=== PATIENT | female | born 1960 ===

== ENCOUNTER 2017-05-10 19:31 | Emergency (ER) | payer MEDICARE, MEDICAID ==
--- NOTE | ~2017-05-10 | ER ---
[facility] AGE[facility] 57 Y [address] ROOM: [place] [id number] LOCATION: [facility] ADMIT DATE: 05/10/2017 ER/Outpatient Report DISCHARGE DATE: 05/10/2017 FAMILY PHYSICIAN: France Mitchell MD ATTENDING PHYSICIAN: Shaunna Caraballo Time of Evaluation: 1945 hours. CHIEF COMPLAINT: Left flank pain. HISTORY OF PRESENT ILLNESS: The patient is a 57-year-old female, who presents with history of back pain for the last 4 weeks. However, today, she had 3 emesis. She denied any fever, chills, or urinary symptoms. The patient has had a recent MRI, and it showed some degenerative disk disease and bulging disks and is scheduled later on this week for an epidural steroid injection. The epidural was ordered by her pain specialist. ALLERGIES: SULFA. CURRENT MEDICATIONS: 1. Flexeril. 2. Allopurinol. 3. Abilify. 4. Zoloft. 5. Metformin. 6. Potassium. 7. Lipitor. 8. Hydrochlorothiazide. 9. Aspirin. 10. Wellbutrin. MEDICAL HISTORY: Pvy-juvgeen-lbxgmazik diabetes, excessive weight, COPD, gout, depression, anxiety, hyperlipidemia, enlarged heart, asthma, chronic pain related to her back. SOCIAL HISTORY: History of tobacco abuse, alcohol socially. REVIEW OF SYSTEMS: GENERAL: Today, no recent fever or chills. HEENT: Denies any headache, stiff neck. PATIENT'S NAME: [facility] AGE: 57 Y [address] ROOM: [place] [id number] LOCATION: [facility] ADMIT DATE: 05/10/2017 ER/Outpatient Report DISCHARGE DATE: 05/10/2017 FAMILY PHYSICIAN: France Mitchell MD ATTENDING PHYSICIAN: Shaunna Caraballo RESPIRATORY: No shortness of breath. No cough. CARDIOVASCULAR: No heart palpitations. GASTROINTESTINAL: She had vomited 3 times today. No diarrhea. Denies anterior abdominal pain. GENITOURINARY: She has had some left flank pain but no dysuria. PHYSICAL EXAMINATION: VITAL SIGNS: Blood pressure was 156/76, her temperature was 98.6, her O2 saturations 95%, her pulse 93, respiratory rate 20. GENERAL APPEARANCE: A white female, she is overweight, appeared alert and oriented. EYES: PERRLA. No icterus was noted. NOSE: Septum midline. MOUTH: Oral membranes moist. NECK: No presence of adenopathy. LUNGS: Peripherally sounded clear. ABDOMEN: Obese but soft. She was tender in the left flank area. NEURO: She appeared to have normal sensation to light touch to her lower extremities. LABORATORY DATA AND X-RAYS: Her urine did show the presence of leukocytes but negative nitrites. Her micro: 20-50 white cells, 0-2 red cells, but she had 10-20 epithelial with moderate bacteria, probable contamination related. CBC: White count was 7.8, her hemoglobin 12.8, her ANC was 5.1. CMS: Potassium low at 3.3, her glucose was 217, creatinine was 1.6. ASSESSMENT: 1. Left side back pain. 2. History of chronic back pain. 3. Excessive weight. 4. Hyperlipidemia. 5. History of gout. 6. History of depression and anxiety. 7. Xib-kcbatzr-zrkpahrpq diabetes mellitus. 8. History of chronic obstructive pulmonary disease. PLAN: The patient was given an injection of Toradol 60 mg IM. Recommend she go home, use ice or heat on her back. If she develops any fever, vomiting continues, or pain is not improving by tomorrow, she needs to follow up with her family doctor. Otherwise, continue her Flexeril. PATIENT'S NAME: [facility] AGE: 57 Y [address] ROOM: [place] [address] LOCATION: ED ADMIT DATE: 05/10/2017 ER/Outpatient Report DISCHARGE DATE: 05/10/2017 FAMILY PHYSICIAN: France Mitchell MD ATTENDING PHYSICIAN: Shaunna Caraballo RAYNA KLEIN FOR MD SARAH OSORIOJ/chip /[id number] d: 05/10/17 2346 t: 08/29/17 1221, OUTPATIENT REPORT
[2017-05-10 20:07] LABS: BILIRUBIN URINE NEGATIVE (NEGATIVE); BLOOD URINE 10 /UL (NEGATIVE); COLOR URINE YELLOW (YELLOW); GLUCOSE URINE NEGATIVE (NEGATIVE); KETONE URINE NEGATIVE (NEGATIVE); LEUKOCYTES URINE 100 /UL (NEGATIVE); NITRITE URINE NEGATIVE (NEGATIVE); PROTEIN URINE 15 mg/dL (NEGATIVE); SPEC GRAVITY URINE 1.015 (1.003-1.035); TURBIDITY URINE 1+ (CLEAR); UROBILINOGEN URINE NORMAL (NORMAL)
[2017-05-10 20:17] LABS: BACTERIA URINE MODERATE (NEGATIVE); RBC URINE 0-2 #/HPF (NEGATIVE); WBC CLUMPS URINE RARE (NEGATIVE); WBC URINE 20-50 #/HPF (NEGATIVE)
[2017-05-10 20:23] LABS: BASOPHIL % 0.5 %; EOSINOPHIL # 0.2 K/uL (0.0-0.5); EOSINOPHIL % 2.2 %; HEMATOCRIT 37.5 % (33.0-46.0); HEMOGLOBIN 12.8 g/dL (10.0-15.0); IMMATURE GRANULOCYTE % 0.4 %; LYMPHOCYTE % 25.1 %; MCH 31.5 pg (27.0-34.0); MCHC 34.1 gm/dL (32.0-36.5); MCV 92.4 fl (83.0-98.0); MONOCYTE # 0.4 K/uL (0.0-1.0); MONOCYTE % 5.5 %; NEUTROPHIL # (ANC) 5.1 K/uL (1.8-7.8); NEUTROPHIL % 66.3 %; NRBC % 0 /100WBC (0-0.00); PLATELET COUNT 140 K/uL (150-450); RBC 4.06 M/uL (3.50-5.50); RDW-CV 14.3 % (11.9-14.6); WBC 7.8 K/uL (4.0-11.0)
[2017-05-10 20:40] LABS: ALBUMIN 3.6 gm/dL (3.5-5.0); ANION GAP 12.3 (10.0-19.0); CREATININE 1.6 mg/dL (0.5-1.1); POTASSIUM 3.3 mMol/L (3.7-5.1); TOTAL BILIRUBIN 0.3 mg/dL (0.0-1.5); TOTAL PROTEIN 7.1 g/dL (6.0-8.4)
== END 2017-05-10 21:15 | disposition disaster alternative care site (69) ==
LOC: GMED 19:31
PROVIDERS: Physician Assistant Medical
DX: M54.5 Low back pain (principal); G89.29 Other chronic pain; F17.210 Nicotine dependence, cigarettes, uncomplicated; E11.9 Type 2 diabetes mellitus without complications; J44.9 Chronic obstructive pulmonary disease, unspecified; F41.9 Anxiety disorder, unspecified; F32.9 Major depressive disorder, single episode, unspecified; M10.9 Gout, unspecified; R63.5 Abnormal weight gain; I51.7 Cardiomegaly; E78.5 Hyperlipidemia, unspecified; Z79.84 Long term (current) use of oral hypoglycemic drugs; Z79.899 Other long term (current) drug therapy; Z79.82 Long term (current) use of aspirin; Z88.2 Allergy status to sulfonamides; J45.909 Unspecified asthma, uncomplicated
CPT/HCPCS: J1885

== ENCOUNTER → 2017-05-11 | Outpatient (CLI) | payer MEDICARE, MEDICAID | END | disposition disaster alternative care site (69) | LOC: GRAD 13:08 | DX: R10.9 Unspecified abdominal pain (principal); Z90.49 Acquired absence of other specified parts of digestive tract ==